=== PATIENT | male | born 1995 | race Caucasian/White ===

== ENCOUNTER 2018-07-16 01:23 | Emergency (ER) | payer MEDICAID ==
[~2018-07-16] VITALS: Ht 172.7 cm; Wt 73.0 kg
[2018-07-16] MEDS ORDERED: KETOROLAC 30MG/ML VIAL IV ONE (02:15)
[2018-07-16] MEDS ORDERED: PROPOFOL 200MG/20ML VIAL IV ONE (02:30)
[2018-07-16] MEDS ORDERED: KETAMINE HCL 50 MG/ML 10ML IV ONE (02:30)
[2018-07-16 05:05] VITALS: BP 118/80
== END 2018-07-16 05:20 | disposition home or self-care (01) ==
LOC: ER 01:23
DX: S43.084A Other dislocation of right shoulder joint, initial encounter (principal); F17.200 Nicotine dependence, unspecified, uncomplicated; W07.XXXA Fall from chair, initial encounter; Y93.9 Activity, unspecified; Y92.9 Unspecified place or not applicable
CPT/HCPCS: 23650; 73020; 73030; 96374; 99152; 99285; J1885; J3490; Z7610; J2704; L3670

== ENCOUNTER 2018-09-25 23:57 | Emergency (ER) | payer MEDICAID ==
[~2018-09-25] VITALS: Ht 180.3 cm; Wt 73.0 kg
[2018-09-26] MEDS ORDERED: ZIPRASIDONE MESYLATE 20MG/VIAL IM STA (01:11)
[2018-09-26] MEDS ORDERED: LORAZEPAM 2MG/ML CPJ IM STA (01:11)
[2018-09-26 01:53] LABS: BASOPHILS % 0.4 % (0.0-2.0); EOSINOPHILS % 0.3 % (0.0-5.0); HEMATOCRIT. 44.1 % (42.0-52.0); HEMOGLOBIN. 15.7 g/dL (14.0-18.0); LYMPHOCYTES % 27.2 % (20.0-50.0); MEAN CORPUSCULAR VOLUME 86.9 fL (80.0-94.0); MEAN PLATELET VOLUME 6.9 fl (7.4-10.4); MONOCYTES % 7.3 % (2.0-8.0); NEUTROPHILS % 64.8 % (40.0-76.0); PLATELET 275 x1000/uL (130-400); PROTHROMBIN TIME 10.5 sec (9.1-11.1); RED BLOOD CELL COUNT 5.07 mill/uL (4.7-6.1)
[2018-09-26 02:05] LABS: CHLORIDE 108 mEq/L (98-107)
[2018-09-26 02:18] LABS: CREATINE KINASE 421 IU/L (39-308)
[2018-09-26 02:36] LABS: ETHANOL BLOOD 131 mg/dL
[2018-09-26 02:55] LABS: CLARITY URINE CLEAR (CLEAR); COLOR URINE YELLOW (YELLOW); KETONES URINE NEGATIVE (NEGATIVE); LEUKOCYTE ESTERASE URINE NEGATIVE (NEGATIVE); NITRITE URINE NEGATIVE (NEGATIVE); OCCULT BLOOD URINE NEGATIVE (NEGATIVE); PH URINE 6.5 (4.5-8.0); PROTEIN URINE NEGATIVE (NEGATIVE); SPECIFIC GRAVITY URINE 1.007 (1.005-1.030); UROBILINOGEN URINE 0.2 E.U./dL (0.2-1.0)
[2018-09-26 03:06] LABS: *AMPHETAMINES SCREEN URINE PRESUMTIVE POSITIVE (NEGATIVE); *BARBITURATES SCREEN URINE NEGATIVE (NEGATIVE); *BENZODIAZEPINES SCREEN URINE NEGATIVE (NEGATIVE)
[2018-09-26 03:07] LABS: *COCAINE SCREEN URINE NEGATIVE (NEGATIVE); CANNABINOID URINE SCREEN PRESUMTIVE POSITIVE (NEGATIVE); METHADONE URINE SCREEN NEGATIVE (NEGATIVE); OPIATES URINE SCREEN NEGATIVE (NEGATIVE); PHENCYCLIDINE URINE SCREEN NEGATIVE (NEGATIVE)
[2018-09-26] MEDS ORDERED: SODIUM CHLORIDE 0.9% 1,000 ML IV ONE (03:34)
[2018-09-26 12:11] VITALS: BP 110/64
== END 2018-09-26 12:18 | disposition home or self-care (01) ==
LOC: ER 23:57
DX: F19.10 Other psychoactive substance abuse, uncomplicated (principal); R45.851 Suicidal ideations; F91.8 Other conduct disorders; Z78.1 Physical restraint status
CPT/HCPCS: 36415; 80053; 80305; 80307; 80329; 81003; 82550; 84443; 85025; 85610; 96372; 99285; G0482; J2060; J3486; J7030

== ENCOUNTER 2018-09-27 10:55 | Emergency (ER) | payer MEDICAID ==
[~2018-09-27] VITALS: Ht 172.7 cm; Wt 75.0 kg
[2018-09-27] MEDS ORDERED: LORAZEPAM 2MG/ML CPJ IM ONE (11:45)
[2018-09-27] MEDS ORDERED: HALOPERIDOL LACTATE 5MG/ML VIAL IM ONE (11:45)
[2018-09-27 12:18] LABS: BASOPHILS % 0.3 % (0.0-2.0); EOSINOPHILS % 0.2 % (0.0-5.0); HEMATOCRIT. 43.1 % (42.0-52.0); HEMOGLOBIN. 15.1 g/dL (14.0-18.0); LYMPHOCYTES % 23.6 % (20.0-50.0); MEAN CORPUSCULAR HEMOGLOBIN 30.3 pg (28.0-32.0); MEAN CORPUSCULAR VOLUME 86.7 fL (80.0-94.0); MONOCYTES % 10.3 % (2.0-8.0); NEUTROPHILS % 65.6 % (40.0-76.0); PLATELET 267 x1000/uL (130-400); RED BLOOD CELL COUNT 4.98 mill/uL (4.7-6.1)
[2018-09-27 12:24] LABS: CHLORIDE 103 mEq/L (98-107)
[2018-09-27 12:36] LABS: ETHANOL BLOOD < 10 mg/dL
[2018-09-27 12:52] LABS: CLARITY URINE CLEAR (CLEAR); COLOR URINE YELLOW (YELLOW); KETONES URINE NEGATIVE (NEGATIVE); LEUKOCYTE ESTERASE URINE NEGATIVE (NEGATIVE); NITRITE URINE NEGATIVE (NEGATIVE); OCCULT BLOOD URINE TRACE (NEGATIVE); PROTEIN URINE 1+ (NEGATIVE); UROBILINOGEN URINE 0.2 E.U./dL (0.2-1.0)
[2018-09-27 12:56] LABS: *AMPHETAMINES SCREEN URINE PRESUMTIVE POSITIVE (NEGATIVE); CANNABINOID URINE SCREEN PRESUMTIVE POSITIVE (NEGATIVE); OPIATES URINE SCREEN NEGATIVE (NEGATIVE); PHENCYCLIDINE URINE SCREEN NEGATIVE (NEGATIVE)
[2018-09-27 12:57] LABS: *BARBITURATES SCREEN URINE NEGATIVE (NEGATIVE); *BENZODIAZEPINES SCREEN URINE NEGATIVE (NEGATIVE); *COCAINE SCREEN URINE NEGATIVE (NEGATIVE); METHADONE URINE SCREEN NEGATIVE (NEGATIVE)
[2018-09-27 23:51] VITALS: BP 122/76
== END 2018-09-27 23:54 | disposition home or self-care (01) ==
LOC: ER 10:55
DX: F19.10 Other psychoactive substance abuse, uncomplicated (principal); F99 Mental disorder, not otherwise specified; F32.9 Major depressive disorder, single episode, unspecified; Z88.0 Allergy status to penicillin
CPT/HCPCS: 36415; 80053; 80305; 80307; 80329; 81003; 82962; 85025; 96372; 99284; G0482; J1630; J2060